=== PATIENT | female | born 1980 | race Caucasian/White ===

== ENCOUNTER 2024-08-25 11:24 | Emergency (ER) | payer BC ==
[2024-08-25] MEDS: Lidocaine 1% 10 ML MDV INJECT ONE (12:05)
== END 2024-08-25 12:40 | disposition home or self-care (01) ==
LOC: JD.ED 11:24
DX: S51.811A Laceration without foreign body of right forearm, initial encounter (principal); W26.8XXA Contact with other sharp object(s), not elsewhere classified, initial encounter
CPT/HCPCS: 12001; 99283; J2003